=== PATIENT | male | born 1935 | race Caucasian/White ===

== ENCOUNTER 2017-01-01 22:02 | Emergency (ER) | payer OTHER ==
--- NOTE | 2017-01-01 22:13 | CPEKG ---
Heart Rate: 54 RR Interval: 1111 P-R Interval: 186 QRSD Interval: 108 QT Interval: 436 QTC Interval: 414 P Schertz: 0 QRS Schertz: -37 T Wave Schertz: 62 EKG Severity - BORDERLINE ECG - EKG Impression: SINUS RHYTHM EKG Impression: BORDERLINE IVCD WITH LAD Electronically Signed By: Lauren Javed 02-Jan-2017 06:52:41
[2017-01-01 22:15] VITALS: RESP 16; TEMP 98.6
[2017-01-01 22:20] LABS: % IMMATURE GRANULYOCYTES 0.3 % (0.0-1.1); ABSOLUTE IMMATURE GRANULOCYTES 0.02 10^3/uL (0.00-0.10); ADD DIFF? NO; ADD MORPH? NO; ADD SCAN? NO; ATYPICAL LYMPHOCYTE FLAG 0 (0-99); FRAGMENT RBC FLAG 0 (0-99); HEMOGLOBIN 11.9 g/dL (13.7-17.5); LEFT SHIFT FLG 0 (0-99); LIPEMIA HEMOLYSIS FLAG 80 (0-99); MEAN CELL HEMOGLOBIN 31.7 pg (27.9-34.1); MEAN CELL HEMOGLOBIN CONCENTR. 33.1 g/dL (32.4-36.7); MEAN PLATELET VOLUME 10.3 fL (8.7-11.7); PLATELET CLUMPS FLAG 0 (0-99); PLATELET COUNT 173 10^3/uL (150-400); RED BLOOD CELL COUNT 3.75 10^6/uL (4.40-6.38); RED CELL DISTRIBUTION WIDTH 13.2 % (11.5-15.2)
[2017-01-01 22:27] LABS: CALCIUM 9.4 mg/dL (8.5-10.4); CARBON DIOXIDE 26 mEq/l (22-31); CREATININE 1.3 mg/dL (0.7-1.3); GLOMERULAR FILTRATION RATE 53; GLUCOSE 95 mg/dL (70-100); POTASSIUM 4.1 mEq/L (3.5-5.2); SODIUM 140 mEq/L (134-144)
--- NOTE | 2017-01-01 22:35 | EDPHY ---
H & P Stated Complaint: fall vs syncope Time Seen by Provider: 01/01/17 22:05 HPI/ROS: HPI The patient presents brought in by ambulance after a fall which occurred just prior to arrival. The patient lives independently, though was visiting his who suffers from dementia at [facility]. When he was walking into the building he feels as if he slipped and fell though cannot recall exactly what happened. He fell backwards landing on his head. He did not lose consciousness he does not think. He was able to stand up and eventually was at the nurses station and they called an ambulance for him. He does notice he has some swelling of his head, has bleeding of his right elbow and bruising of his left leg. He denies any preceding chest pain, dizziness, shortness of breath, palpitations. He does not have falls frequently. His last fall was about a year ago when he slipped on the ice. He is on Coumadin, though not exactly sure why. REVIEW OF SYSTEMS Constitutional: No fever, no chills. Eyes: No discharge. ENT: No sore throat. Cardiovascular: No chest pain, no palpitations. Respiratory: No cough, no shortness of breath. Gastrointestinal: No abdominal pain, no vomiting. Genitourinary: No hematuria. Musculoskeletal: No back pain. Skin: No rashes. Neurological: No headache. PMHx: CAD status post CABG in 2009, history of prostate enlargement chronic indwelling Steward, on Coumadin Soc Hx: Lives at home independently in [place] PHYSICAL General Appearance: Alert, no distress Eyes: Pupils equal and round no pallor or injection Head: There is a right-sided occipital hematoma of the scalp ENT, Mouth: Mucous membranes moist Respiratory: There are no retractions, lungs are clear to auscultation Cardiovascular: Regular rate and rhythm Gastrointestinal: Abdomen is soft and non-tender, there is a easily reducible ventral hernia, no masses, bowel sounds normal Neurological: A&O, moves all extremities Skin: Warm and dry, no rashes Musculoskeletal: Neck is supple non tender Extremities: symmetrical, full range of motion, abrasion to right elbow, there is fullness, tenderness, mild ecchymoses of the lateral left leg Psychiatric: Patient is oriented X 3, there is no agitation Source: Patient, EMS Exam Limitations: No limitations - Personal History Current Tetanus Diphtheria and Acellular Pertussis (TDAP): Unsure - Medical/Surgical History Hx Asthma: No Hx Chronic Respiratory Disease: No Hx Diabetes: No Hx Cardiac Disease: Yes Hx Renal Disease: No Hx Cirrhosis: No Hx Alcoholism: No Hx HIV/AIDS: No Hx Splenectomy or Spleen Trauma: No Other PMH: PMH: Enlarged prostate, recurrent urine retention, chronic Steward catheter, CABG 12/2009, hypertension, hernia, hypothyroid, reflux - Social History Smoking Status: Never smoked Constitutional: Initial Vital Signs Temperature (C) 37.0 C 01/01/17 22:02 Heart Rate 57 L 01/01/17 22:02 Respiratory Rate 16 01/01/17 22:02 Blood Pressure 180/105 H 01/01/17 22:02 O2 Sat (%) 98 01/01/17 22:02 O2 Delivery Mode Room Air Allergies/Adverse Reactions: lactose [Lactose] Allergy (Mild, Verified 01/01/17 22:10) Other-Enter Comments latex [Latex] Allergy (Verified 01/01/17 22:10) Home Medications: Medication Instructions Recorded LISINOPRIL 10/15/09 Atorvastatin Calcium 01/01/17 Citalopram 01/01/17 Isosorbide 01/01/17 Levothyroxine 01/01/17 Omeprazole 01/01/17 Medical Decision Making - Diagnostics EKG Interpretation: EKG: Complete interpretation has been separately recorded in the [facility] archive. Summary impression: Normal sinus rhythm Imaging Results: Imaging Impressions Chest X-Ray 01/01/17 22:10 Impression: Coronary artery bypass grafts. No acute cardiopulmonary features. CT head without contrast shows no intracranial hemorrhage, discussed with Dr. Monsalve of Radiology. Imaging: Discussed imaging studies w/ call or contact centre operator Radiologist Differential Diagnosis: 81-year-old male with history of CAD status post CABG, on Coumadin, BPH with Steward in place chronically presents with a fall which occurred just prior to arrival. He seems to have slipped and fell backwards landing on his head. He denies any loss of consciousness though cannot recall what caused him to slip. He now feels well and denies any chest pain, shortness of breath, dizziness, palpitations. Differential diagnosis includes arrhythmia, syncope, mechanical fall, intracranial hemorrhage, electrolyte disturbance, anemia. In the emergency department, patient was monitored for several hours with no events on telemetry. He felt well and did not have any complaints. Labs were checked and were unremarkable including troponin. UA shows evidence of contamination and given that he has a chronic indwelling Steward I will send urine culture and base treatment off of this. His daughter came into the emergency department and will take him home. His CT scan of his head is unremarkable and given that he has no headache, mental status changes, vomiting I feel he is safe for discharge. I have discussed strict return precautions with him given that he is on Coumadin and he will return if he develops any headache or vomiting. - Data Points Laboratory Results: Laboratory Results 01/01/17 22:00 01/01/17 22:00 01/01/17 01/01/17 01/01/17 23:15 22:00 22:00 WBC RBC Hgb Hct MCV MCH MCHC RDW Plt Count MPV Neut % (Auto) Lymph % (Auto) [place] % (Auto) Eos % (Auto) Baso % (Auto) Nucleat RBC Rel Count Absolute Neuts (auto) Absolute Lymphs (auto) Absolute Monos (auto) Absolute Eos (auto) Absolute Basos (auto) Absolute Nucleated RBC Immature Gran % Immature Gran # PT 30.3 SEC H SEC (12.0-15.0) INR 2.85 H (0.83-1.16) APTT 44.8 SEC H SEC (23.0-38.0) Sodium 140 mEq/L mEq/L (134-144) Potassium 4.1 mEq/L mEq/L (3.5-5.2) Chloride 102 mEq/L mEq/L (97-110) Carbon Dioxide 26 mEq/l mEq/l (22-31) Anion Gap 12 mEq/L mEq/L (8-16) BUN 23 mg/dL mg/dL (7-23) Creatinine 1.3 mg/dL mg/dL (0.7-1.3) Estimated GFR 53 Glucose 95 mg/dL mg/dL (70-100) Calcium 9.4 mg/dL mg/dL (8.5-10.4) Troponin I 0.015 ng/mL ng/mL (0.000-0.034) Urine Color PALE YELLOW Urine Appearance CLEAR Urine pH 6.0 (5.0-7.5) Ur Specific [place] 1.004 (1.002-1.030) Urine Protein NEGATIVE (NEGATIVE) Urine Ketones NEGATIVE (NEGATIVE) Urine Blood 2+ H (NEGATIVE) Urine Nitrate NEGATIVE (NEGATIVE) Urine Bilirubin NEGATIVE (NEGATIVE) Urine Urobilinogen NEGATIVE EU EU (0.2-1.0) Ur Leukocyte Esterase 3+ H (NEGATIVE) Urine RBC 1-3 /hpf /hpf (0-3) Urine WBC 10-15 /hpf H /hpf (0-3) Ur Epithelial Cells NONE SEEN /lpf /lpf (NONE-1+) Urine Bacteria TRACE /hpf H /hpf (NONE SEEN) Urine Glucose NEGATIVE (NEGATIVE) 01/01/17 22:00 WBC 7.44 10^3/uL 10^3/uL (3.80-9.50) RBC 3.75 10^6/uL L 10^6/uL (4.40-6.38) Hgb 11.9 g/dL L g/dL (13.7-17.5) Hct 36.0 % L % (40.0-51.0) MCV 96.0 fL fL (81.5-99.8) MCH 31.7 pg pg (27.9-34.1) MCHC 33.1 g/dL g/dL (32.4-36.7) RDW 13.2 % % (11.5-15.2) Plt Count 173 10^3/uL 10^3/uL (150-400) MPV 10.3 fL fL (8.7-11.7) Neut % (Auto) 68.0 % % (39.3-74.2) Lymph % (Auto) 19.9 % % (15.0-45.0) [place] % (Auto) 8.9 % % (4.5-13.0) Eos % (Auto) 2.4 % % (0.6-7.6) Baso % (Auto) 0.5 % % (0.3-1.7) Nucleat RBC Rel Count 0.0 % % (0.0-0.2) Absolute Neuts (auto) 5.06 10^3/uL 10^3/uL (1.70-6.50) Absolute Lymphs (auto) 1.48 10^3/uL 10^3/uL (1.00-3.00) Absolute Monos (auto) 0.66 10^3/uL 10^3/uL (0.30-0.80) Absolute Eos (auto) 0.18 10^3/uL 10^3/uL (0.03-0.40) Absolute Basos (auto) 0.04 10^3/uL 10^3/uL (0.02-0.10) Absolute Nucleated RBC 0.00 10^3/uL 10^3/uL (0-0.01) Immature Gran % 0.3 % % (0.0-1.1) Immature Gran # 0.02 10^3/uL 10^3/uL (0.00-0.10) PT INR APTT Sodium Potassium Chloride Carbon Dioxide Anion Gap BUN Creatinine Estimated GFR Glucose Calcium Troponin I Urine Color Urine Appearance Urine pH Ur Specific [place] Urine Protein Urine Ketones Urine Blood Urine Nitrate Urine Bilirubin Urine Urobilinogen Ur Leukocyte Esterase Urine RBC Urine WBC Ur Epithelial Cells Urine Bacteria Urine Glucose Departure - Departure Disposition: Home, Routine, Self-Care Clinical Impression: Fall Qualifiers: Encounter type: initial encounter Qualified Code(s): W19.XXXA - Unspecified fall, initial encounter Condition: Good Instructions: Fall Prevention for Older Adults (ED) Additional Instructions: Please make sure to get good rest and drink plenty of fluids. You should return to the emergency room if your worse in any way or if you develop any headache or vomiting. Referrals: Patient,NotPresent [Unknown] - As per Instructions
[2017-01-01 22:39] LABS: TROPONIN I 0.015 ng/mL (0.000-0.034)
[2017-01-01 23:03] LABS: INR 2.85 (0.83-1.16); PROTIME(PATIENT) 30.3 SEC (12.0-15.0)
[2017-01-01 23:04] LABS: APTT 44.8 SEC (23.0-38.0)
[2017-01-01 23:06] LABS: ANION GAP 12 mEq/L (8-16); CHLORIDE 102 mEq/L (97-110)
[2017-01-01 23:26] LABS: COLOR PALE YELLOW; LEUKOCYTE ESTERASE,URINE 3+ (NEGATIVE); NITRITE,URINE NEGATIVE (NEGATIVE)
[2017-01-01 23:32] LABS: BACTERIA TRACE /hpf (NONE SEEN)
[2017-01-02 00:07] VITALS: BP 158/84; PULSE 54; O2SAT 93
== END 2017-01-02 00:20 | disposition home or self-care (01) ==
LOC: EDUNIT#
DX: S80.12XA Contusion of left lower leg, initial encounter (principal); I25.810 Atherosclerosis of coronary artery bypass graft(s) without angina pectoris; I10 Essential (primary) hypertension; Z91.040 Latex allergy status; W18.39XA Other fall on same level, initial encounter; Y92.89 Other specified places as the place of occurrence of the external cause; Y99.8 Other external cause status; Y93.89 Activity, other specified

== ENCOUNTER 2017-01-28 00:57 | Emergency (ER) | payer OTHER ==
--- NOTE | 2017-01-28 01:34 | EDPHY ---
H & P Stated Complaint: c/o constipation x 2 days, little urine o/p since approx 1600 HPI/ROS: HPI CHIEF COMPLAINT: Constipation, urethral pain. Blood in Steward catheter bag. HISTORY OF PRESENT ILLNESS: Patient is a otherwise healthy 81-year-old male significant past medical history for hypertension, CABG, BPH, chronic indwelling Steward catheter, on Coumadin, he presents emergency room states he feels constipating is having lower abdominal spasms. Patient reports to me that he has not had a normal bowel movement since Sunday. She has been having rather hard stools and then straining. Additionally reports that when he strains or feels he has to go he gets a discomfort in the end of his urethra. Decided come the emergency room because the abdominal spasms cramps have been getting worse. Upon arrival to the emergency room it is noted that he has indwelling Steward catheter with a leg bag that has blood in the leg bag. He denies fever back pain denies chest pain or shortness of breath. Denies vomiting. No diarrhea. Past Medical History: CABG, BPH, chronic indwelling Steward catheter, on Coumadin , hypertension Past Surgical History: No recent surgery. History of CABG. Social History: Denies daily use drugs alcohol tobacco. Daughter at bedside. Family History: Noncontributory ROS REVIEW OF SYSTEMS: A comprehensive 10 point review of systems is otherwise negative aside from elements mentioned in the history of present illness. Exam Constitutional appears well nontoxic triage nursing summary reviewed, vital signs reviewed, awake/alert. Eyes normal conjunctivae and sclera, EOMI, PERRLA. HENT normal inspection, atraumatic, moist mucus membranes, no epistaxis, neck supple/ no meningismus, no raccoon eyes. Respiratory clear to auscultation bilaterally, normal breath sounds, no respiratory distress, no wheezing. Cardiovascular rate normal, regular rhythm, no murmur, no edema, distal pulses normal. Gastrointestinal hypoactive bowel sounds on exam, however soft, non-tender, no rebound, no guarding, no distension, no pulsatile mass. Genitourinary no CVA tenderness. Chronic indwelling Steward catheter. With leg bag. Blood present in back. Musculoskeletal no midline vertebral tenderness, full range of motion, no calf swelling, no tenderness of extremities, no meningismus, good pulses, neurovascularly intact. Skin pink, warm, & dry, no rash, skin atraumatic. Neurologic awake, alert and oriented x 3, AAOx3, moves all 4 extremities equally, motor intact, sensory intact, CN II-XII intact, normal cerebellar, normal vision, normal speech. Psychiatric normal mood/affect. Heme/Lymph/Immune no lymphadenopathy. Differential Diagnosis: Includes but is not limited to in a particular order constipation, bowel obstruction, urinary tract infection, cystitis, Steward balloon trauma Supratherapeutic INR, renal failure Medical Decision Making: Plan for this patient change out Steward catheter, obtain urine sample and send UA, check basic blood work including coags, gentle IV hydration, KUB for constipation. Re-evaluate. Re-evaluation: UA reviewed. This indicates UTI. Will send urine culture. IV Rocephin here in the emergency room. ED x-ray KUB reviewed. This shows constipation. No free air. No bowel obstruction pattern. Source: Patient - Medical/Surgical History Hx Asthma: No Hx Chronic Respiratory Disease: No Hx Diabetes: No Hx Cardiac Disease: Yes Hx Renal Disease: No Hx Cirrhosis: No Hx Alcoholism: No Hx HIV/AIDS: No Hx Splenectomy or Spleen Trauma: No Other PMH: PMH: Enlarged prostate, recurrent urine retention, chronic Steward catheter, CABG 12/2009, hypertension, hernia, hypothyroid, reflux, hyperlipidemia - Social History Smoking Status: Never smoked Constitutional: Initial Vital Signs Temperature (C) 36.4 C 01/28/17 01:01 Heart Rate 65 01/28/17 01:01 Respiratory Rate 16 01/28/17 01:01 Blood Pressure 129/73 H 01/28/17 01:01 O2 Sat (%) 97 01/28/17 01:01 O2 Delivery Mode Room Air Allergies/Adverse Reactions: lactose [Lactose] Allergy (Mild, Verified 01/28/17 01:10) Other-Enter Comments latex [Latex] Allergy (Verified 01/28/17 01:10) Home Medications: Medication Instructions Recorded LISINOPRIL 10/15/09 Atorvastatin Calcium 01/01/17 Citalopram 01/01/17 Isosorbide 01/01/17 Levothyroxine 01/01/17 Omeprazole 01/01/17 Cephalexin [Keflex] 500 mg PO Q6H #28 cap 01/28/17 Phenazopyridine HCl [Pyridium] 200 mg PO TID #15 tab 01/28/17 Polyethylene Glycol 3350 [Miralax 17 gm PO DAILY #2 pkt 01/28/17 17 gm (*)] Warfarin Sodium 01/28/17 Medical Decision Making - Data Points Laboratory Results: 01/28/17 01:55 Urine Color RED Urine Appearance MODERATELY TURBID Urine pH 8.0 H (5.0-7.5) Ur Specific [place] 1.012 (1.002-1.030) Urine Protein 3+ H (NEGATIVE) Urine Ketones NEGATIVE (NEGATIVE) Urine Blood 3+ H (NEGATIVE) Urine Nitrate POSITIVE H (NEGATIVE) Urine Bilirubin NEGATIVE (NEGATIVE) Urine Urobilinogen NEGATIVE EU EU (0.2-1.0) Ur Leukocyte Esterase 2+ H (NEGATIVE) Urine RBC 50-182 /hpf H /hpf (0-3) Urine WBC 50-182 /hpf H /hpf (0-3) Ur Epithelial Cells NONE SEEN /lpf /lpf (NONE-1+) Urine Bacteria 4+ /hpf H /hpf (NONE SEEN) Urine Mucus 1+ /lpf /lpf (NONE-1+) Urine Glucose NEGATIVE (NEGATIVE) Departure - Departure Disposition: Home, Routine, Self-Care Clinical Impression: UTI (urinary tract infection) Qualifiers: Urinary tract infection type: acute cystitis Hematuria presence: with hematuria Qualified Code(s): N30.01 - Acute cystitis with hematuria Constipation Qualifiers: Constipation type: other constipation type Qualified Code(s): K59.09 - Other constipation Condition: Good Instructions: Urinary Tract Infection in Men (ED) Additional Instructions: 1. Make sure to drink lots of fluids stay well-hydrated. 2. Antibiotic as prescribed. 3. Return to the emergency room if there is worsening symptoms questions or concerns. This includes worsening abdominal pain, worsening urinary symptoms. 4. Follow up with your primary care doctor. Referrals: LUCIUS ALBERTO [Other] - As per Instructions Prescriptions: Cephalexin [Keflex] 500 mg PO Q6H #28 cap Phenazopyridine HCl [Pyridium] 200 mg PO TID #15 tab Polyethylene Glycol 3350 [Miralax 17 gm (*)] 17 gm PO DAILY #2 pkt
[2017-01-28] MEDS ORDERED: NS 1,000 ML IV ONE (01:43)
[2017-01-28 02:04] LABS: COLOR RED; LEUKOCYTE ESTERASE,URINE 2+ (NEGATIVE); NITRITE,URINE POSITIVE (NEGATIVE)
[2017-01-28 02:14] LABS: BACTERIA 4+ /hpf (NONE SEEN); MUCUS 1+ /lpf (NONE-1+); RBC,URINE 50-182 /hpf (0-3); WBC,URINE 50-182 /hpf (0-3)
[2017-01-28] MEDS ORDERED: PHENAZOPYRIDINE HCL 200 MG TAB PO ONE (02:22)
[2017-01-28 02:34] LABS: % IMMATURE GRANULYOCYTES 0.3 % (0.0-1.1); ABSOLUTE IMMATURE GRANULOCYTES 0.03 10^3/uL (0.00-0.10); ADD DIFF? NO; ADD MORPH? NO; ADD SCAN? NO; ATYPICAL LYMPHOCYTE FLAG 10 (0-99); FRAGMENT RBC FLAG 0 (0-99); HEMOGLOBIN 10.7 g/dL (13.7-17.5); LEFT SHIFT FLG 0 (0-99); LIPEMIA HEMOLYSIS FLAG 80 (0-99); MEAN CELL HEMOGLOBIN 31.4 pg (27.9-34.1); MEAN CELL HEMOGLOBIN CONCENTR. 33.4 g/dL (32.4-36.7); MEAN CELL VOLUME 93.8 fL (81.5-99.8); MEAN PLATELET VOLUME 9.9 fL (8.7-11.7); PLATELET CLUMPS FLAG 10 (0-99); PLATELET COUNT 236 10^3/uL (150-400); RED BLOOD CELL COUNT 3.41 10^6/uL (4.40-6.38); RED CELL DISTRIBUTION WIDTH 13.6 % (11.5-15.2)
[2017-01-28 02:43] LABS: INR 2.46 (0.83-1.16); PROTIME(PATIENT) 26.9 SEC (12.0-15.0)
[2017-01-28 02:45] LABS: ANION GAP 10 mEq/L (8-16); CALCIUM 9.2 mg/dL (8.5-10.4); CARBON DIOXIDE 24 mEq/l (22-31); CHLORIDE 100 mEq/L (97-110); CREATININE 1.3 mg/dL (0.7-1.3); GLOMERULAR FILTRATION RATE 53; GLUCOSE 111 mg/dL (70-100); POTASSIUM 4.4 mEq/L (3.5-5.2); SODIUM 134 mEq/L (134-144)
[2017-01-28 02:46] LABS: APTT 42.2 SEC (23.0-38.0)
[2017-01-28 03:51] VITALS: BP 108/51; PULSE 56; RESP 18; TEMP 98.1; O2SAT 94
== END 2017-01-28 03:50 | disposition home or self-care (01) ==
PROC: 0T9B70Z Drainage of Bladder with Drainage Device, Via Natural or Artificial Opening (ICD-10-PCS; principal; 2017-01-28)
PROC: 3E0337Z Introduction of Electrolytic and Water Balance Substance into Peripheral Vein, Percutaneous Approach (ICD-10-PCS; principal; 2017-01-28)
DX: K59.09 Other constipation (principal); N30.01 Acute cystitis with hematuria; B96.89 Other specified bacterial agents as the cause of diseases classified elsewhere; E86.9 Volume depletion, unspecified
CPT/HCPCS: 51702; 74000; 96361; 96365; 99284; J0696

== ENCOUNTER 2017-09-08 21:19 | Emergency (ER) | payer OTHER ==
[2017-09-08 21:28] VITALS: BP 133/74
[2017-09-08] MEDS ORDERED: CEPHALEXIN 500 MG CAP PO ONE (22:10)
[2017-09-08] MEDS ORDERED: CEPHALEXIN 500MG PREPACK#4 BTL TAKEHOME ONE (22:10)
--- NOTE | 2017-09-08 22:11 | EDPHY ---
H & P Stated Complaint: POS SKIN INFECTION/POSTERIOR NECK Time Seen by Provider: 09/08/17 21:59 HPI/ROS: HPI The patient presents with right-sided posterior neck pain and redness which has been present for the last several days. He says he has had a cyst in this region for many years and previously his would drain at occasionally. His in April of this year. He now has a roommate and the roommate noticed that this cyst was red and draining some cloudy fluid and he has come here for care. The patient denies any fevers or chills, nausea or vomiting. He says he has not seen a professor of literature in about 10 years.. REVIEW OF SYSTEMS Constitutional: No fever, no chills. Eyes: No discharge. ENT: No sore throat. Cardiovascular: No chest pain, no palpitations. Respiratory: No cough, no shortness of breath. Gastrointestinal: No abdominal pain, no vomiting. Genitourinary: No hematuria. Musculoskeletal: No back pain. Skin: No rashes. Neurological: No headache. PMHx: CAD, hypertension, [place] patient Soc Hx: Lives with a roommate PHYSICAL General Appearance: Alert, no distress Eyes: Pupils equal and round no pallor or injection ENT, Mouth: Mucous membranes moist Respiratory: Breathing comfortably Neurological: A&O, moves all extremities Skin: Right posterior neck with 2 x 2 cm raised, fluctuant, firm area of redness with tract to the skin draining malodorous cloudy fluid Musculoskeletal: Neck is supple non tender Extremities: symmetrical, full range of motion Psychiatric: Patient is oriented X 3, there is no agitation Source: Patient Exam Limitations: No limitations - Personal History Current Tetanus Diphtheria and Acellular Pertussis (TDAP): Yes - Medical/Surgical History Hx Asthma: No Hx Chronic Respiratory Disease: No Hx Diabetes: No Hx Cardiac Disease: Yes Hx Renal Disease: No Hx Cirrhosis: No Hx Alcoholism: No Hx HIV/AIDS: No Hx Splenectomy or Spleen Trauma: No Other PMH: PMH: Enlarged prostate, recurrent urine retention, chronic Steward catheter, CABG 12/2009, hypertension, hernia, hypothyroid, reflux, hyperlipidemia - Social History Smoking Status: Never smoked Constitutional: Initial Vital Signs Temperature (C) 36.3 C 09/08/17 21:25 Heart Rate 54 L 09/08/17 21:25 Respiratory Rate 16 09/08/17 21:25 Blood Pressure 133/74 H 09/08/17 21:25 O2 Sat (%) 99 09/08/17 21:25 O2 Delivery Mode Room Air Allergies/Adverse Reactions: lactose [Lactose] Allergy (Mild, Verified 01/28/17 01:10) Other-Enter Comments latex [Latex] Allergy (Verified 01/28/17 01:10) Home Medications: Medication Instructions Recorded LISINOPRIL 10/15/09 Atorvastatin Calcium 01/01/17 Citalopram 01/01/17 Isosorbide 01/01/17 Levothyroxine 01/01/17 Omeprazole 01/01/17 Cephalexin [Keflex] 500 mg PO Q6H #28 cap 01/28/17 Phenazopyridine HCl [Pyridium] 200 mg PO TID #15 tab 01/28/17 Polyethylene Glycol 3350 [Miralax 17 gm PO DAILY #2 pkt 01/28/17 17 gm (*)] Warfarin Sodium 01/28/17 Cephalexin [Keflex (*)] 500 mg PO Q6H #28 cap 09/08/17 Medical Decision Making Differential Diagnosis: 81-year-old male with multiple medical problems presents with what appears to be infected sebaceous cyst, spontaneously draining cloudy fluid. No surrounding cellulitis is present. The cyst is spontaneously draining, thus I and D is not necessary. I will start him on a course of Keflex. He is a [place] patient and I have encouraged him to follow up with his primary [place] doctor for possible dermatology referral. Other differential diagnoses considered include cellulitis and abscess. - Data Points Medications Given: Discontinued Medications Cephalexin (Keflex 500 Mg Prepack#4) 1 btl TAKEHOME EDNOW ONE PRN Reason: Protocol Stop: 09/08/17 22:11 Last Admin: 09/08/17 22:21 Dose: 1 btl Cephalexin HCl (Keflex) 500 mg PO EDNOW ONE PRN Reason: Protocol Stop: 09/08/17 22:11 Last Admin: 09/08/17 22:21 Dose: 500 mg Departure - Departure Disposition: Home, Routine, Self-Care Clinical Impression: Infected sebaceous cyst of skin Condition: Good Instructions: Cephalexin (By mouth), Epidermal Inclusion Cysts (ED) Additional Instructions: I would recommend that you use warm soaks on your cyst to help drain the fluid. Take the antibiotic as prescribed. Follow up with your primary care doctor for referral to Dermatology for further treatment for this cyst. Return for any increased pain or swelling of your back. Referrals: LUCIUS ALBERTO [Other] - As per Instructions Prescriptions: Cephalexin [Keflex (*)] 500 mg PO Q6H #28 cap
== END 2017-09-08 22:26 | disposition home or self-care (01) ==
DX: L72.3 Sebaceous cyst (principal); I10 Essential (primary) hypertension; I25.810 Atherosclerosis of coronary artery bypass graft(s) without angina pectoris; Z79.01 Long term (current) use of anticoagulants; Z91.040 Latex allergy status